=== PATIENT | female | born 1970 | race Hispanic/Latino ===

== ENCOUNTER → 2024-09-02 | Outpatient (REF) | payer OTHER ==
[~2024-09-02] MED LIST: AMLODIPINE BESY10 MG PO; CRESTOR40 MG PO; JARDIANCE25 MG PO; LOSARTAN POTAS100 MG PO; WIXELA 250-501 EACH INH
== END ==
LOC: US 09:17
PROVIDERS: ATTEND Nurse Practitioner
DX: K29.60 Other gastritis without bleeding (principal); R74.8 Abnormal levels of other serum enzymes; Z86.0100 Personal history of colon polyps, unspecified
CPT/HCPCS: 76700

== ENCOUNTER → 2024-09-17 | Day surgery (SDC) | payer OTHER ==
[~2024-09-17] MED LIST changes: +FENTANYL CITRATE/PF 100MCG/2 ML INJ ONE; +GLUCAGON FOR INJ 1 MG VIAL ONE; +HYOSCYAMINE SULFATE 0.5 MG/ML INJ ONE; +LIDOCAINE HCL 2% LOCAL INJ 5 ML SDV VIAL INJ ONE; +MIDAZOLAM HCL 2 MG/2 ML VIAL ONE; +PROPOFOL IV EMULSION 50 ML IV ONE
[2024-09-17] MEDS: LACTATED RINGER'S 1,000 ML ONE (10:06)
[2024-09-17 11:30] VITALS: TEMP 97.7
[2024-09-17 12:15] VITALS: BP 149/94; PULSE 70; RESP 16; O2SAT 95
== END | disposition home or self-care (01) ==
LOC: OR 09:30
PROVIDERS: ATTEND Internal Medicine Gastroenterology
DX: K29.60 Other gastritis without bleeding (principal); D12.2 Benign neoplasm of ascending colon; K25.9 Gastric ulcer, unspecified as acute or chronic, without hemorrhage or perforation; K22.70 Barrett's esophagus without dysplasia; K44.9 Diaphragmatic hernia without obstruction or gangrene; K59.09 Other constipation; K57.30 Diverticulosis of large intestine without perforation or abscess without bleeding; K64.8 Other hemorrhoids; Z71.3 Dietary counseling and surveillance; R74.8 Abnormal levels of other serum enzymes; E11.9 Type 2 diabetes mellitus without complications; I10 Essential (primary) hypertension; J45.909 Unspecified asthma, uncomplicated; E78.00 Pure hypercholesterolemia, unspecified; Z01.810 Encounter for preprocedural cardiovascular examination; Z79.84 Long term (current) use of oral hypoglycemic drugs; Z79.899 Other long term (current) drug therapy; Z68.41 Body mass index [BMI] 40.0-44.9, adult
CPT/HCPCS: 36415; 43239; 43450; 45385; 82948; 93005; J1610; J1980; J2003; J2250; J2470; J2704; J3010; J7121

== ENCOUNTER → 2024-11-20 | Outpatient (REF) | payer OTHER ==
[~2024-11-20] MED LIST changes: -FENTANYL CITRATE/PF 100MCG/2 ML INJ ONE; -GLUCAGON FOR INJ 1 MG VIAL ONE; -HYOSCYAMINE SULFATE 0.5 MG/ML INJ ONE; -LIDOCAINE HCL 2% LOCAL INJ 5 ML SDV VIAL INJ ONE; -MIDAZOLAM HCL 2 MG/2 ML VIAL ONE; -PROPOFOL IV EMULSION 50 ML IV ONE
== END ==
LOC: NM 07:53
PROVIDERS: ATTEND Nurse Practitioner
DX: K82.8 Other specified diseases of gallbladder (principal)
CPT/HCPCS: 78227; A9537